=== PATIENT | male | born 1975 | race Caucasian/White ===

== ENCOUNTER 2020-03-30 22:40 | Emergency (ER) | payer OTHER ==
--- NOTE | 2020-03-30 23:44 | EDM.PDOC ---
ED HPI GENERAL MEDICAL PROBLEM - General Chief Complaint: Flank Pain Stated Complaint: BLADDER/KIDNEY PAIN Time Seen by Provider: 03/30/20 23:20 Source of Information: Reports: Patient History Limitations: Reports: No Limitations - History of Present Illness INITIAL COMMENTS - FREE TEXT/NARRATIVE: 44-year-old male with known nephrolithiasis and hydronephrosis diagnosed several times over the past 6 months he is in today concerned because he is having increased pain especially in the right groin with some dysuria especially at the end of urination. He continues to take his daily Flomax and anti-inflammatories. He had a CT scan on the , 2-1/2 weeks ago and has the report which showed obstructive uropathy in both ureters. He has no fevers or chills, no significant back pain, mild nausea but no vomiting. Onset: Unknown/Unsure Quality: Reports: Burning, Stabbing (Worse with urination) Associated Symptoms: Reports: Malaise. Denies: Chest Pain, Fever/Chills, Headaches, Loss of Appetite, Nausea/Vomiting, Shortness of Breath Treatments [employer]: Reports: NSAIDS Left Flank Pain Score (Numeric/FACES): 6 - Related Data Allergies Allergy/AdvReac Type Severity Reaction Status Date / Time Penicillins Allergy Rash Verified 03/30/20 23:02 Home Meds: Home Meds Cyclobenzaprine [Flexeril] 10 mg PO BEDTIME 03/30/20 [History] Ibuprofen 800 mg PO Q8HR PRN 03/30/20 [History] Tamsulosin HCl [Flomax] 0.4 mg PO BEDTIME 03/30/20 [History] Past Medical History Genitourinary History: Reports: Renal Calculus - Past Surgical History Male Surgical History: Reports: Lithotripsy ([facility]), Renal Calculus Neurological Surgical History: Reports: Spinal Fusion Social & Family History - Tobacco Use Smoking Status *Q: Never Smoker Second Hand Smoke Exposure: No - Caffeine Use Caffeine Use: Reports: Soda - Recreational Drug Use Recreational Drug Use: No ED ROS GENERAL - Review of Systems Review Of Systems: See Below Constitutional: Denies: Fever, Chills HEENT: Reports: No Symptoms Respiratory: Denies: Shortness of Breath Cardiovascular: Denies: Chest Pain GI/Abdominal: Reports: Abdominal Pain, Nausea. Denies: Constipation, Diarrhea, Vomiting : Reports: Dysuria, Frequency, Urgency Skin: Reports: No Symptoms Neurological: Reports: No Symptoms Psychiatric: Reports: No Symptoms ED EXAM, RENAL/ - Physical Exam Exam: See Below Exam Limited By: No Limitations General Appearance: Alert, No Apparent Distress Head: Atraumatic Respiratory/Chest: No Respiratory Distress, Lungs Clear Cardiovascular: Regular Rate, Rhythm GI/Abdominal: Soft, Other (Fairly obese, no focal tenderness) Back Exam: No: CVA Tenderness (R), CVA Tenderness (L) Neurological: Alert, Oriented Psychiatric: Normal Affect, Normal Mood Skin Exam: Warm, Dry Course - Vital Signs Last Recorded V/S: Last Vital Signs Temp 96.5 F L 03/30/20 23:12 Pulse 80 03/30/20 23:12 Resp 14 03/30/20 23:12 BP 194/8 H 03/30/20 23:12 Pulse Ox 97 03/30/20 23:12 - Orders/Labs/Meds Labs: Laboratory Tests 03/30/20 03/30/20 03/30/20 Range/Units 23:03 23:35 23:35 WBC 9.1 (4.5-11.0) K/uL RBC 5.38 (4.30-5.90) M/uL Hgb 13.9 (12.0-15.0) g/dL Hct 41.6 (40.0-54.0) % MCV 77 L (80-98) fL MCH 26 L (27-31) pg MCHC 33 (32-36) % Plt Count (150-400) K/uL Neut % (Auto) 62 (36-66) % Lymph % (Auto) 27 (24-44) % [place] % (Auto) 8 H (2-6) % Eos % (Auto) 2 (2-4) % Baso % (Auto) 1 (0-1) % Sodium 144 (140-148) mmol/L Potassium 4.0 (3.6-5.2) mmol/L Chloride 106 (100-108) mmol/L Carbon Dioxide 28 (21-32) mmol/L Anion Gap 10.5 (5.0-14.0) mmol/L BUN 15 (7-18) mg/dL Creatinine 0.9 (0.8-1.3) mg/dL Est Cr Clr Drug Dosing 102.39 mL/min Estimated GFR (MDRD) > 60 (>60) Glucose 97 (74-106) mg/dL Calcium 9.3 (8.5-10.1) mg/dL Urine Color Yellow (YELLOW) Urine Appearance Clear (CLEAR) Urine pH 7.5 (5.0-8.0) Ur Specific [place] 1.020 (1.008-1.030) Urine Protein Negative (NEGATIVE) mg/dL Urine Glucose (UA) Normal (NEGATIVE) mg/dL Urine Ketones Negative (NEGATIVE) mg/dL Urine Occult Blood Moderate (NEGATIVE) Urine Nitrite Negative (NEGATIVE) Urine Bilirubin Negative (NEGATIVE) Urine Urobilinogen 0.2 (0.2-1.0) EU/dL Ur Leukocyte Esterase Negative (NEGATIVE) Urine RBC 30-40 H (0-5) Urine WBC 0-5 (0-5) Ur Epithelial Cells Rare Amorphous Sediment Not seen Urine Bacteria Few Urine Mucus Few - Re-Assessments/Exams Free Text/Narrative Re-Assessment/Exam: 03/30/20 23:44 A UA was obtained which did show RBCs but no evidence of infection. CBC and BMP were also obtained as well as a CT scan of the abdomen and pelvis without contrast. 03/31/20 00:10 All labs were reassuring, white count normal, GFR normal, creatinine normal, and UA showing RBCs but no infection. CT scan did still show bilateral obstructing ureteral stones but they were small. Hydronephrosis was present bilaterally as explained below. Copies of the labs as well as the CT scan and the images were given to the patient and he will continue with treatment as he is taking currently and recheck when he gets home in 4 days. 03/31/20 00:13 IMPRESSIONS: 1. There is a 4 mm stone present in the right ureterovesicular junction causing moderate right hydroureter and mild right renal pelviectasis. 2. A 6 mm stone is present in the distal left ureter, just proximal to the ureterovesicular junction and causes moderate to severe left hydroureter and mild left renal pelviectasis. Departure - Departure Time of Disposition: 00:29 Disposition: Home, Self-Care 01 Clinical Impression: Ureteric colic - Discharge Information Instructions: Kidney Stones, [id number] Referrals: PCP,None [Primary Care Provider] - Forms: ED Department Discharge Care Plan Goals: Continue with your current medications, stay hydrated, and recheck when home to compare your CT scan and labs with your previous levels. Return if worsening or concerns. Sepsis Event Note - Evaluation Sepsis Screening Result: No Definite Risk - Focused Exam Vital Signs: Vital Signs Temp Pulse Resp BP Pulse Ox 03/30/20 23:12 96.5 F L 80 14 194/8 H 97 03/30/20 22:53 96.5 F L 79 16 198/94 H 96 Date Exam was Performed: 03/31/20 Time Exam was Performed: 00:33
--- NOTE | 2020-03-31 00:10 | CRLCT ---
INDICATION: Renal colic history of stones TECHNIQUE: CT Abdomen and pelvis without i.v. contrast. Coronal and sagittal reformats were obtained. COMPARISON: None FINDINGS: Lower chest: Unremarkable. Liver: Unremarkable. Spleen: Unremarkable. Pancreas: Unremarkable. Gallbladder: Unremarkable. Kidney: There is a 4 mm stone present in the right ureterovesicular junction causing moderate right hydroureter and mild right renal pelviectasis. A 6 mm stone is present in the distal left ureter, just proximal to the ureterovesicular junction and causes moderate to severe left hydroureter and mild left renal pelviectasis. Intrarenal stones are present in the mid and lower poles of both kidneys. Adrenal: Unremarkable. Bowel: Unremarkable. The appendix is normal in appearance and size. Vascular: Unremarkable. Lymph: Unremarkable. Peritoneum: Unremarkable. No pneumoperitoneum is seen. No significant ascites is noted. Pelvis: Unremarkable. Soft tissue: Unremarkable. Bone: Transpedicular spinal fusion of L2-3 is noted. IMPRESSIONS: 1. There is a 4 mm stone present in the right ureterovesicular junction causing moderate right hydroureter and mild right renal pelviectasis. 2. A 6 mm stone is present in the distal left ureter, just proximal to the ureterovesicular junction and causes moderate to severe left hydroureter and mild left renal pelviectasis. Dictated by Maximo Turcios MD @ 03/31/2020 12:08:47 AM Please note that all CT scans at this facility use dose modulation, iterative reconstruction, and/or weight-based dosing when appropriate to reduce radiation dose to as low as reasonably achievable. Dictated by: Maximo Turcios MD @ 03/31/2020 00:08:56 (Electronically Signed)
== END 2020-03-31 00:31 | disposition home or self-care (01) ==
LOC: JP.ED 22:40
DX: N13.2 Hydronephrosis with renal and ureteral calculous obstruction (principal); Z88.0 Allergy status to penicillin; Z87.441 Personal history of nephrotic syndrome
CPT/HCPCS: 36415; 74176; 80048; 81001; 85025; 99284-25